=== PATIENT | female | born 1995 | race Caucasian/White ===

== ENCOUNTER 2022-10-31 10:26 | Emergency (ER) | payer BC ==
[~2022-10-31] VITALS: Ht 167.6 cm; Wt 154.2 kg
[2022-10-31 11:00] VITALS: BP 167/109
[2022-10-31] MEDS ORDERED: LORA10ER PO (11:17)
[2022-10-31] MEDS ORDERED: NAPR220 PO (11:17)
[2022-10-31] MEDS ORDERED: AMOCLA875 PO (11:17)
[2022-10-31] MEDS ORDERED: Clindamycin HC150 MG PO (11:42)
[2022-10-31] MEDS ORDERED: Percocet 5-3251 EACH PO (11:42)
== END 2022-10-31 12:15 | disposition home or self-care (01) ==
LOC: ER 10:26
DX: K04.7 Periapical abscess without sinus (principal); Z79.899 Other long term (current) drug therapy
CPT/HCPCS: 41800; 96372-59; 99282-25; J1885